=== PATIENT | female | born 1970 | race Caucasian/White ===

== ENCOUNTER 2021-02-02 22:47 | Inpatient (IN) | payer MEDICARE, OTHER ==
[~2021-02-02] VITALS: Ht 154.9 cm; Wt 59.9 kg
[2021-02-02 23:10] VITALS: BP 127/93
[2021-02-02] MEDS ORDERED: MAGNESIUM HYDROXIDE 30 ML UDC PO PRN (23:30)
[2021-02-02] MEDS ORDERED: MAG HYDROX/AL HYDROX/SIMETH 30 ML UDC PO PRN (23:30)
[2021-02-02] MEDS ORDERED: BLOOD SUGAR DIAGNOSTIC 1 EACH STRIP IN ONE (23:30)
[2021-02-02] MEDS ORDERED: LORAZEPAM 0.5 MG TABLET PO PRN (23:30)
--- NOTE | 2021-02-03 00:10 | NUR ---
RN NOTE ASKED THE PATIENT WHO TO NOTIFY REGARDING HER ADMISSION AT [facility] GPS UNIT, PATIENT STATED," I DON'T WANT YOU TO CALL MY KIDS, ONLY CALL ANTON (SHREDDING SPECIALIST), IT'S TOO LATE, CALL HER IN THE MORNING." WILL CALL ANTON IN AM TO INFORM HER REGARDING PATIENT'S ADMISSION AT [facility].
[2021-02-03] MEDS: ZOLPIDEM TARTRATE 5 MG TABLET PO PRN (00:12)
--- NOTE | 2021-02-03 00:14 | NUR ---
RN NOTE: INSOMNIA PATIENT STATED THAT SHE IS UNABLE TO SLEEP & REQUESTED FOR SLEEPING MEDICINE. PRN AMBIEN 5 MG 1 TAB PO GIVEN. WILL CONTINUE TO MONITOR.
[2021-02-03] MEDS: ACETAMINOPHEN 325 MG TABLET PO PRN ×2 (00:15→07:15)
--- NOTE | 2021-02-03 00:16 | NUR ---
RN NOTE: PAIN PATIENT C/O NECK & BACK PAIN 01/22, REQUESTED TO TAKE TYLENOL. PRN TYLENOL 650 MG PO ADMINISTERED. WILL CONTINUE TO MONITOR
--- NOTE | 2021-02-03 00:30 | NUR ---
GPS RN-ADMISSION NOTES: ADMITTED A 50-YR OLD FEMALE, FROM [facility]. ADMITTED ON 5150 FOR DTS. PER HOLD, PT. TEXTED HER STEP DAUGHTER THAT SHE DID NOT WANT TO BE HERE ANYMORE, THAT SHE WAS A BAD MOM AND THAT SHE HAS WRITTEN DOWN HER LAST WISHES ON A PIECE OF PAPER. UPON FACE TO FACE ASSESSMENT, PATIENT IS A/OX3, COOPERATIVE, AFFECT IS FLAT, DEPRESSED. PER PATIENT," I SENT A TEXT TO MY SON SINCE I HAD A BAD DAY BUT I DO NOT WANT TO HURT MYSELF AT ALL, IT WAS JUST THAT MOMENT & BAD THOUGHT THAT I HAD. MY SON CALLED [facility] OPER[facility] & THEY HAND CUFFED ME & TOOK ME TO THE HOSPITAL." AMBULATORY BUT UNSTEADY GAIT. CONTINENT. PT. HAS HX OF CHRONIC NECK & BACK PAIN. PT WAS ADVISED OF HER HOLD. PT'S RIGHTS HANDBOOK AND A GUIDE TO PRESCRIPTION MEDICATIONS GIVEN. IN NO APPARENT DISTRESS NOTED. BELONGINGS WERE INVENTORIED AND CHECKED FOR CONTRABAND. PT. IS UNDER THE PSYCHIATRIC CARE OF DR. YORK. ORDERS OBTAINED, AND UNDER THE MEDICAL CARE OF ARABELLA JENKINS. SKIN BODY ASSESSMENT DONE. PHOTOS TAKEN. PT. DENIES SI/HI, AVH AT THIS TIME. BED ALARM ON. MRSA COLLECTED & SENT TO LAB. SAFETY PRECAUTIONS IN PLACE. BED LOCKED AND IN LOWEST POSITION. SIDE RAILS UP X2. WILL CONTINUE TO MONITOR Q15 MINS ROUNDS FOR SAFETY AND BEHAVIOR.
[2021-02-03] MEDS ORDERED: HYDR-3980 PO (00:32)
[2021-02-03] MEDS ORDERED: LEVE1000 PO (00:32)
[2021-02-03] MEDS ORDERED: TRAZODONE PO (00:32)
[2021-02-03] MEDS ORDERED: MORP30TA7 PO (00:32)
[2021-02-03] MEDS ORDERED: METO-357 PO (00:32)
[2021-02-03] MEDS ORDERED: METF-440 PO (00:32)
[2021-02-03] MEDS ORDERED: BACL10TA PO (00:32)
[2021-02-03] MEDS ORDERED: GABA-536 PO (00:34)
--- NOTE | 2021-02-03 00:40 | NUR ---
RN NOTE PATIENT IS A & O X 3. PATIENT HAS LONG LIST OF HOME MEDS FROM [facility], CONFIRMED WITH THE PATIENT, BUT PER PATIENT SHE DOES NOT TAKE ALL THESE MEDS CURRENTLY, SHE HAS TAKEN THEM IN THE PAST. PT. LISTED ONLY 8 HOME MEDS AT THIS TIME. GREGORY BELL NOTIFIED TO RECONCILE THE HOME MEDS, GREGORY SAID MEDS WILL BE RECONCILED IN AM. CHARGE NURSE MADE AWARE.
[2021-02-03] MEDS ORDERED: HYDROCODONE/APAP 5/325MG TABLET PO PRN (01:30)
--- NOTE | 2021-02-03 01:46 | NUR ---
RN NOTE: GREGORY BELL RECONCILED THE MEDS.
--- NOTE | 2021-02-03 06:38 | NUR ---
PER PATIENT REQUEST CALLED ANTON WEB UI DESIGNER AT [phone], UNABLE TO LEAVE A MESSAGE DUE TO VOICE MAIL BEING FULL.
--- NOTE | 2021-02-03 07:15 | NUR ---
RN NOTE: PAIN PATIENT C/O NECK & BACK PAIN 01/22, REQUESTED TO TAKE TYLENOL. PRN TYLENOL 650 MG PO ADMINISTERED. WILL CONTINUE TO MONITOR
[2021-02-03 07:17] LABS: BASOPHILS % (AUTO) 0.3 % (0.0-2.0); EOSINOPHILS % (AUTO) 0.1 % (0.0-6.0); HEMATOCRIT 40 % (33-45); HEMOGLOBIN 13.5 g/dL (11.5-14.8); LYMPHOCYTES # (AUTO) 0.9 /CMM (0.8-4.8); LYMPHOCYTES % (AUTO) 16.5 % (20.0-44.0); MEAN CORPUSCULAR HGB CONC 34 g/dl (31.0-36.0); MEAN CORPUSCULAR VOLUME 91 fL (82-100); MONOCYTES # (AUTO) 0.3 /CMM (0.1-1.30); MONOCYTES % (AUTO) 4.8 % (2.0-12.0); NEUTROPHILS # (AUTO) 4.2 /CMM (1.8-8.9); NEUTROPHILS % (AUTO) 78.3 % (43.0-81.0); PLATELET COUNT (AUTO) 222 /CMM (150-450); RED BLOOD CELL COUNT(AUTO) 4.43 MIL/uL (4.0-5.2); WHITE BLOOD COUNT (AUTO) 5.4 K/uL (4.3-11.0)
[2021-02-03 07:29] LABS: CALCIUM, SERUM 9.9 mg/dL (8.5-10.1); CREATININE 0.6 mg/dL (0.6-1.3); POTASSIUM 3.3 mmol/L (3.5-5.1)
[2021-02-03 08:00] VITALS: BP 147/85
[2021-02-03] MEDS ORDERED: POTASSIUM CHLORIDE 20 MEQ TAB.PRT.SR PO ONE (09:30)
[2021-02-03] MEDS: BACLOFEN (10 MG) 10 MG TABLET PO SCH ×3 (09:44→17:03)
[2021-02-03] MEDS: METOPROLOL SUCCINATE 50 MG TAB.SR.24H PO SCH (09:45)
[2021-02-03] MEDS: LEVETIRACETAM (250 MG) 250 MG TABLET PO SCH ×2 (09:46→21:52)
[2021-02-03] MEDS: METFORMIN 500 MG TABLET PO SCH ×2 (09:46→17:03)
[2021-02-03] MEDS: ESCITALOPRAM OXALATE (10 MG) 10 MG TABLET PO SCH (11:01)
[2021-02-03 16:00] VITALS: BP 122/89
[2021-02-03] MEDS: GABAPENTIN 400 MG CAPSULE PO SCH (17:59)
[2021-02-03] MEDS: HYDROCODONE/APAP 10/325MG TABLET PO SCH (18:01)
[2021-02-03 21:18] VITALS: BP 132/79
[2021-02-04] MEDS: HYDROCODONE/APAP 10/325MG TABLET PO SCH ×5 (00:04→23:44)
[2021-02-04 08:00] VITALS: BP_SYST 126
[2021-02-04] MEDS: METFORMIN 500 MG TABLET PO SCH ×2 (09:01→17:40)
[2021-02-04] MEDS: ESCITALOPRAM OXALATE (10 MG) 10 MG TABLET PO SCH (09:01)
[2021-02-04] MEDS: ACETAMINOPHEN 325 MG TABLET PO PRN ×2 (09:01→16:49)
--- NOTE | 2021-02-04 09:01 | NUR ---
GIVEN TYLENOL 650 MG PO FOR HEADACHE.
[2021-02-04] MEDS: LEVETIRACETAM (250 MG) 250 MG TABLET PO SCH ×2 (09:02→20:57)
[2021-02-04] MEDS: BACLOFEN (10 MG) 10 MG TABLET PO SCH ×3 (09:02→17:40)
[2021-02-04] MEDS: METOPROLOL SUCCINATE 50 MG TAB.SR.24H PO SCH (09:03)
--- NOTE | 2021-02-04 09:06 | NUR ---
Family Contact: SW received a call from the pts sister, Jenni Christy ([phone]), who stated that she does not believe the pt needs to be in a psychiatric unit and that she wants the MD to discharge her as soon as possible. SW stated that she would speak to the MD and then call her back.
--- NOTE | 2021-02-04 09:25 | NUR ---
Caregiver Contact: NERISSA received a call from the pts caregiver, Kierra ([phone]), who stated that she is the one involved in this pts case as she will be the one to provide the pt with transportation back to her home. NERISSA stated that she is aware that the family wants the pt to be discharged as soon as possible and NERISSA stated that she will speak to the MD and then inform them.
--- NOTE | 2021-02-04 10:20 | NUR ---
Caregiver Contact: NERISSA called the pts caregiver, Kierra ([phone]), and informed her that the MD stated that the pt will be discharged on Wednesday and the pts caregiver stated that she will come and picking table worker the pt around 11am.
--- NOTE | 2021-02-04 10:50 | NUR ---
Family Contact: SW called the pts sister, Jenni Christy ([phone]), and informed her that the pt will be discharged on Wednesday and that the pts caregiver will fiber picker the pt around 11am.
--- NOTE | 2021-02-04 12:16 | NUR ---
given routine norco-pt. states back and head pain.
--- NOTE | 2021-02-04 15:36 | NUR ---
GIVEN MAALOX 30 ML AFTER EATING CHOCOLATE ICE CREAM ,STATES SHE HAS NAUSEA.
[2021-02-04 16:00] VITALS: BP 170/80
--- NOTE | 2021-02-04 16:44 | NUR ---
BP ELEVATED GIVEN ATIVAN AT THIS TIME DUE TO NERVES,
--- NOTE | 2021-02-04 16:53 | NUR ---
GIVEN TYLENOL 650 MG FOR HEADACHE.
[2021-02-04] MEDS: GABAPENTIN 400 MG CAPSULE PO SCH (17:40)
--- NOTE | 2021-02-04 17:53 | NUR ---
BP CHECK 157/90,HEART RATE 63.
[2021-02-04 21:00] VITALS: BP 126/83
[2021-02-04] MEDS: ZOLPIDEM TARTRATE 5 MG TABLET PO PRN (21:01)
--- NOTE | 2021-02-04 22:18 | NUR ---
GPS RN NOTES: PATIENT TRANSFERRED TO GPS OVER FLOW ROOM 313 TO MAKE ROOM FOR A NEW ADMIT. REPORT GIVEN TO LESLIE. ALL PM MEDS ADMINISTERED ORDERED. AMBIEN GIVEN AT 2101. PATIENT STILL AWAKE, A/O X3 BEFORE TRANSFER AT 2216. PATIENT HAS NO S/S OF DISTRESS. NO COMPLAINS OF PAIN.
--- NOTE | 2021-02-05 05:21 | NUR ---
TRANSFERED FOM THE GERIPSYCH UNIT. ALERT AND ORIENTATED X3. SPEECH CLEAR. WAS ORIENTATED TO THE ROOM AND THE CALL LIGHT. SITTER AT THE BEDSIDE. NO SUICIDAL THOUGHTS THIS 12 HOURS. PLEASENT AND CALM AND MEDICATION COMPLIANT
[2021-02-05] MEDS: HYDROCODONE/APAP 10/325MG TABLET PO SCH ×4 (06:11→23:53)
--- NOTE | 2021-02-05 07:28 | NUR ---
MS RN OPENING NOTES ALERT AND ORIENTATED X3. SPEECH CLEAR. IS ORIENTATED TO THE ROOM AND THE CALL LIGHT. SITTER AT THE BEDSIDE. NO SUICIDAL THOUGHTS AT THIS TIME. PLEASENT AND CALM AND MEDICATION COMPLIANT
--- NOTE | 2021-02-05 07:50 | NUR ---
GPS OVERFLOW RN NOTES RECEIVED PATIENT FOR CELSO IN MEDICALLY STABLE CONDITION. WILL CONTINUE TO MONITOR PATIENT.
[2021-02-05 08:23] VITALS: BP 122/70
[2021-02-05] MEDS: METFORMIN 500 MG TABLET PO SCH ×2 (08:33→17:40)
[2021-02-05] MEDS: BACLOFEN (10 MG) 10 MG TABLET PO SCH ×3 (08:33→16:13)
[2021-02-05] MEDS: LEVETIRACETAM (250 MG) 250 MG TABLET PO SCH ×2 (08:33→20:43)
[2021-02-05] MEDS: ESCITALOPRAM OXALATE (10 MG) 10 MG TABLET PO SCH (08:33)
[2021-02-05] MEDS: METOPROLOL SUCCINATE 50 MG TAB.SR.24H PO SCH (08:34)
--- NOTE | 2021-02-05 11:45 | NUR ---
Initial Discharge Plan: Pt currently resides in her apartment alone located at [address] [place] [address]; ([phone]). Per pt, she lives alone but she has a caregiver who assists her. Pt states that she would like to be discharged to her home as soon as possible. SW will work with the pt and the MD regarding appropriate discharge planning. SW will form a safe and proper discharge.
[2021-02-05] MEDS: ACETAMINOPHEN 325 MG TABLET PO PRN (15:24)
--- NOTE | 2021-02-05 15:25 | NUR ---
GPS OVERFLOW RN NOTES PATIENT WITH MILD PAIN IN THE BACK AND NECK; REQUESTING TYLENOL. PRN TYLENOL ADMINISTERED.
[2021-02-05 15:51] VITALS: BP 129/85
[2021-02-05] MEDS: GABAPENTIN 400 MG CAPSULE PO SCH (16:13)
--- NOTE | 2021-02-05 18:34 | NUR ---
GPS RN OVERFLOW RN CLOSING NOTES PATIENT RESTING COMFORTABLY IN BED, AWAKE, A/O X4. PATIENT BREATHING ON ROOM AIR; BREATHING EVEN AND UNLABORED. PAIN TREATED WITH SCHEDULED AND PRN MEDICATIONS PER MD ORDER. NO IV LINE PRESENT. PATIENT AMBULATORY AND ABLE TO MAKE NEEDS KNOWN. ALL NEEDS ATTENDED THROUGHOUT THE DAY. SAFETY PRECAUTIONS IN PLACE; BED IN LOW POSITION AND LOCKED, RAILS UP X2, CALL LIGHT WITHIN REACH. WILL ENDORSE TO MANAGER OF WAREHOUSE NURSE.
--- NOTE | 2021-02-05 19:24 | NUR ---
RN NOTES PATIENT RESTING COMFORTABLY IN BED, AWAKE, A/O X4. PATIENT BREATHING ON ROOM AIR; BREATHING EVEN AND UNLABORED. NO IV LINE PRESENT. PATIENT AMBULATORY AND ABLE TO MAKE NEEDS KNOWN. ALL NEEDS ATTENDED TO AT THIS MOMENT. SAFETY PRECAUTIONS IN PLACE; BED IN LOW POSITION AND LOCKED, RAILS UP X2, CALL LIGHT WITHIN REACH. WILL CONTINUE TO MONITOR..
[2021-02-05 20:00] VITALS: BP 120/80
[2021-02-05] MEDS: ZOLPIDEM TARTRATE 5 MG TABLET PO PRN (21:14)
[2021-02-06] MEDS: ACETAMINOPHEN 325 MG TABLET PO PRN ×3 (03:39→19:41)
[2021-02-06] MEDS: HYDROCODONE/APAP 10/325MG TABLET PO SCH ×4 (05:34→23:55)
--- NOTE | 2021-02-06 07:01 | NUR ---
RN NOTES PATIENT RESTING COMFORTABLY IN BED, AWAKE, A/O X4. PATIENT BREATHING ON ROOM AIR; BREATHING EVEN AND UNLABORED. NO IV LINE PRESENT. PATIENT AMBULATORY AND ABLE TO MAKE NEEDS KNOWN. ALL NEEDS ATTENDED TO AT THIS MOMENT. SAFETY PRECAUTIONS IN PLACE; BED IN LOW POSITION AND LOCKED, RAILS UP X2, CALL LIGHT WITHIN REACH. WILL ENDORSE CARE TO DAY SHIFT.
[2021-02-06 08:00] VITALS: BP 125/82
--- NOTE | 2021-02-06 08:00 | NUR ---
GPS OVERFLOW RN OPENING NOTE PT RECEIVED IN BED, SLEEPING BUT AROUSABLE AND RESPONSIVE. PT IS A/O X 4, VERBAL AND HAS NO C/O PAIN AT THIS TIME. PT HAS NO SUICIDAL IDEATION OR HOMICIDAL IDEATION AT THIS TIME. PT HAS A 1:1 SITTER AT BEDSIDE. PT REMAINS CALM AND COOPERATIVE AT THIS TIME, AND HAS NO S/SX OF ACUTE PHYSIOLOGICAL OR PSYCHOLOGICAL DISTRESS. PT IS ON ROOM AIR WITH NO S/SX OF RESPIRATORY DISTRESS OR SOB AT THIS TIME. NO IV ACCESS ON PT. PT IS AMBULATORY WITH STEADY GAIT. SAFETY MEASURES IN PLACE: BED IN LOWEST, LOCKED POSITION WITH BOTH UPPER SIDE RAILS UP X 2. CALL LIGHT PLACED WITHIN REACH. WILL CONTINUE TO MONITOR.
[2021-02-06] MEDS: METFORMIN 500 MG TABLET PO SCH ×2 (08:22→17:08)
[2021-02-06] MEDS: LEVETIRACETAM (250 MG) 250 MG TABLET PO SCH ×2 (08:35→21:15)
[2021-02-06] MEDS: BACLOFEN (10 MG) 10 MG TABLET PO SCH ×3 (08:36→16:03)
[2021-02-06] MEDS: METOPROLOL SUCCINATE 50 MG TAB.SR.24H PO SCH (08:36)
[2021-02-06] MEDS: ESCITALOPRAM OXALATE (10 MG) 10 MG TABLET PO SCH (08:36)
--- NOTE | 2021-02-06 10:10 | NUR ---
GPS OVERFLOW RN NOTE PT C/O ACHING PAIN RATED 3/20 ON UPPER BACK. ADMINISTERED TYLENOL 650MG PO Q6H PRN ORDERED PER PT'S REQUEST AT 10:07AM. WILL CONTINUE TO MONITOR.
--- NOTE | 2021-02-06 14:05 | NUR ---
Caregiver Contact: SW called the pts caregiver, Kierra ([phone]), and confirmed that the pt will be picked up the following day at 11am.
[2021-02-06 16:00] VITALS: BP 132/83
[2021-02-06] MEDS: GABAPENTIN 400 MG CAPSULE PO SCH (16:03)
--- NOTE | 2021-02-06 17:22 | NUR ---
Received pt. from 3rd floor overflow wheeled by staff with belongings. Pt. is alert/ oriented x3, ambulatory and without distress.
--- NOTE | 2021-02-06 17:32 | NUR ---
GPS OVERFLOW SENIOR PROCUREMENT MANAGER NOTE PT TRANSFERRED TO GPS FOR CELSO. PT LEFT UNIT AT 17:10 ACCOMPANIED BY ME VIA WHEELCHAIR. GAVE REPORT TO GPS NURSE [place] FOR CELSO.
--- NOTE | 2021-02-06 19:41 | NUR ---
RN NOTE: BACK PAIN PATIENT C/O BACK PAIN 01/22, REQUESTED TO GET TYLENOL AT THIS TIME. PRN TYLENOL 650 MG PO GIVEN. WILL CONTINUE TO MONITOR FOR ANY CHANGES.
[2021-02-06 19:52] VITALS: BP 134/90
[2021-02-06 19:59] VITALS: BP 134/90
[2021-02-06] MEDS: ZOLPIDEM TARTRATE 5 MG TABLET PO PRN (21:26)
--- NOTE | 2021-02-06 21:28 | NUR ---
RN NOTE: INSOMNIA PATIENT VERBALIZED THAT SHE IS UNABLE TO SLEEP & REQUESTED TO TAKE SLEEPING MEDICINE, PRN AMBIEN 5 MG PO GIVEN. WILL CONTINUE TO MONITOR FOR ANY CELSO.
[2021-02-07] MEDS: HYDROCODONE/APAP 10/325MG TABLET PO SCH (05:58)
[2021-02-07 08:00] VITALS: BP 131/98
--- NOTE | 2021-02-07 08:21 | NUR ---
Dr. oHod gave an order to D/C hold and D/C home and to follow up with psych and medical doctors.
[2021-02-07] MEDS: ESCITALOPRAM OXALATE (10 MG) 10 MG TABLET PO SCH (08:29)
[2021-02-07] MEDS: METFORMIN 500 MG TABLET PO SCH (08:29)
[2021-02-07] MEDS: BACLOFEN (10 MG) 10 MG TABLET PO SCH (08:29)
[2021-02-07] MEDS: LEVETIRACETAM (250 MG) 250 MG TABLET PO SCH (08:30)
[2021-02-07 08:34] VITALS: BP 131/98
[2021-02-07] MEDS: METOPROLOL SUCCINATE 50 MG TAB.SR.24H PO SCH (08:34)
--- NOTE | 2021-02-07 08:42 | NUR ---
Dr. Brown made aware of the discharge and provided a prescriptions.
--- NOTE | 2021-02-07 10:50 | NUR ---
GPS/RN-DISCHARGE NOTES PATIENT DISCHARGE TO HOME TODAY ( PSYCHIATRIST) AND DR. BROWNE ( CONTENT PRODUCTION SPECIALIST) MADE AWARE OF THE DISCHARGE WITH ORDERS. PATIENT A/O X4 AMBULATORY WITH STEADY GAIT. OFFERED FLU VACCINE PRIOR TO DISCHARGE BUT PATIENT REFUSED. ALL DISCHARGE MEDICATIONS WAS REVIEWED WITH THE PATIENT WITH UNDERSTANDING. RX WAS GIVEN TO THE PATIENT. PATIENT DID NOT VERBALIZE SI/HI,DENIES VISUAL/AUDITORY HALLUCINATIONS AT THE TIME OF DISCHARGE. INSTRUCTED PATIENT TO CALL 911 OR GO TO THE NEAREST EMERGENCY FACILITY [facility]. VITAL SIGNS FOLLOWS BP 131/98,P63, T97.5, R18 AN O2 SAT.99% RA. PATIENT LEFT THE UNIT IN STABLE CONDITION, AMBULATORY WITH STEADY GAIT.PATIENT WAS INSPECTOR ALUMINUM BOAT BY HER CAREGIVER CEASAR VIA PRIVATE CAR. ALL BELONGINGS WAS GIVEN BACK TO THE PATIENT.
--- NOTE | 2021-02-07 11:25 | NUR ---
Discharge Note: Pt will be discharged to her home located at [address] [place] [id number]; ([phone]). Pt will be picked up by her caregiver, Kierra ([phone]), around 11am. Upon discharge, pt appears to be in a euthymic mood and presents with an elated affect. Pt denies suicidal and homicidal ideation as well as auditory and visual hallucinations. Pt appears to be alert and oriented x4 (time, place, self and situation). Pt appears to be well groomed and appropriately dressed. Pt appears to be ambulatory with a steady gait. Pt was able to maintain appropriate eye contact and tone of speech. Pt agreed to the discharge plan to return to her home. Pt was referred to [facility] located at [address] [facility] [address], [place] [address]; for psychiatric services. Records were faxed to: [phone]. Pt will also follow up with her construction contractor, Dr. Bourgeois, located at [address] [place] [address] [place] [address]; . The multidisciplinary exit care form was done, printed, signed, and given to the patient.
--- NOTE | 2021-02-07 14:05 | NUR ---
GPS/RN-DISCHARGE NOTES PATIENT DISCHARGE TO [facility] LOCATED AT [place]. DR. PINA ( PSYCHIATRIST) AND DR. MAN ( HAND RIVETER) MADE AWARE OF THE DISCHARGE WITH ORDERS. PATIENT A/O X4 USING WHEELCHAIR. OFFERED FLU VACCINE PRIOR TO DISCHARGE BUT PATIENT REFUSED. ALL DISCHARGE MEDICATIONS WAS REVIEWED WITH THE PATIENT WITH UNDERSTANDING. RX WAS GIVEN TO THE PATIENT. PATIENT DID NOT VERBALIZE SI/HI,DENIES VISUAL/AUDITORY HALLUCINATIONS AT THE TIME OF DISCHARGE. INSTRUCTED PATIENT TO CALL 911 OR GO TO THE NEAREST EMERGENCY FACILITY [facility]. VITAL SIGNS FOLLOWS BP 128/68,P63, T97.5, R18 AN O2 SAT.96% RA. PATIENT LEFT THE UNIT IN STABLE CONDITION. PATIENT WAS WHEELED DOWN THE LOBBY FOR SAFETY. PATIENT LEFT VIA TAXI ALL BELONGINGS WAS GIVEN BACK TO THE PATIENT.
== END 2021-02-07 10:50 | disposition home or self-care (01) | DRG 885 ==
LOC: GPS 22:47 → GPSOV 02-04 22:13 → GPS 02-06 17:18
PROVIDERS: ADMIT Psychiatry & Neurology Psychiatry; ATTEND Nurse Practitioner Acute Care
DX: F32.2 Major depressive disorder, single episode, severe without psychotic features (principal); F29 Unspecified psychosis not due to a substance or known physiological condition; F41.9 Anxiety disorder, unspecified; E11.9 Type 2 diabetes mellitus without complications; E78.5 Hyperlipidemia, unspecified; G35 Multiple sclerosis; Z73.6 Limitation of activities due to disability; I10 Essential (primary) hypertension; K21.9 Gastro-esophageal reflux disease without esophagitis; G62.9 Polyneuropathy, unspecified; Z79.84 Long term (current) use of oral hypoglycemic drugs
CPT/HCPCS: 36415; 80048-TC; 80061-TC; 82962-TC; 84703-TC; 85025-TC; 87081-TC; 97112-TC; 97116-TC; 97530-TC